=== PATIENT | female | born 1965 | race Two or more races ===

== ENCOUNTER → 2025-01-28 | Outpatient (CLI) | payer MEDICAID, SELFPAY ==
--- NOTE | 2025-01-28 08:45 | XR_ITS ---
Examination: Abdomen sonogram, complete Date and time of exam: January 28, 2025 0910 hours INDICATIONS: Chronic hepatitis C diagnosis 2000. Technique: Multiple real-time grayscale transabdominal sonographic images of the abdomen have been obtained. Findings: Absent gallbladder Common bile duct 0.7 cm no stones Pancreatic head 2.9 cm Aorta not enlarged Liver 13.7 cm irregular contour benign liver cysts Normal hepatopedal portal venous flow Patent IVC Right kidney 10.6 cm renal cortex 1.2 cm Left kidney 10.1 cm renal cortex 1.5 cm Minimal renal parenchymal scar formation Spleen 11.5 cm IMPRESSION: No common bile stones Primary hepatocellular disease
== END | disposition home or self-care (01) ==
LOC: CDIM 08:47
PROVIDERS: Referring Provider Internal Medicine Gastroenterology; Visit Provider Internal Medicine Gastroenterology
DX: K76.9 Liver disease, unspecified (principal); B18.2 Chronic viral hepatitis C
CPT/HCPCS: 76700